=== PATIENT | female | born 1985 | race Caucasian/White ===

== ENCOUNTER 2021-07-06 17:22 | Emergency (ER) | payer OTHER ==
[~2021-07-06] VITALS: Ht 165 cm; Wt 69.0 kg
[2021-07-06 17:22] VITALS: BP 105/72
--- OUTSIDE RECORDS SUMMARY | 2021-07-06 17:28 | XMS REPORT | Clinical Summary ---
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 Active ergocalciferol Take 50,000 0 (ERGOCALCIFEROL) 50,000 Units by unit capsule mouth weekly. Active ibuprofen (ADVIL,MOTRIN) Take 800 mg 0 800 MG tablet by mouth every 6 (six) hours as needed for pain. Active metaxalone (SKELAXIN) 800 Take 800 mg 0 MG tablet by mouth 3 (three) times a day. Active norgestimate-ethinyl Take 1 tablet 0 estradiol (ORTHO-CYCLEN) by mouth 0.25-35 mg-mcg per tablet daily. Active selenium sulfide (SELSUN) Apply 0 2.5 % lotion topically 2 (two) times a week. Active meclizine (ANTIVERT) 25 Take 1 tablet 30 tablet 0 12/19/201 mg tablet (25 mg total) 7 by mouth every 6 (six) hours as needed for dizziness. Active Lidocaine (LIDODERM) 5 % Place 1 patch 30 patch 0 patch on the skin 7 daily. Remove & Discard patch within 12 hours or as directed by Active predniSONE (DELTASONE) 10 12 day taper 42 tablet 0 //201 MG tablet starting at 7 60 mg daily, decrease 10 mg every other day. Active Problems Patient Care Coordination Note Admission Note - Dr. Butler Ms. Andres Wasserman is a 31 y.o. female with PMH of asthma, anxiety and depression who presented with neck pain and dizziness after seeing a chiropractor. Patient reports a one of history of initially let sided neck and shoulder pain described as aching and tightness with migration to the middle of her neck. At that time, she had no headache (including no radiatoin of the pain to the head), no blurred vision, weakness or numbness/tingling. She was seen by a nurse practitioner with recommendation for ibuprofen and massage therapy with mild improvement of symptoms. Due to subsequent progressive worsening of the symptoms and migration of the pain to the middle/right side of the neck, the patient was seen by a chiropractor for spinal manipulation on 12/09/2016 and also on 12/11/2016. She did have mild improvement in symptoms. This morning, she awoke with severe pain and with new blurred vision, nausea and dizziness. Patient was seen at an outside hospital with concern for possible L vertebral artery dissection. No recent URI with runny nose, cough or fever, chills but did have a URI 3 weeks ago that has since resolved. No hearing loss. No trauma but she does have a history of falls in the past. Of note, she did have a cyst that was removed previously In our ER, the patient was seen by Neuro IR with no dissection and just normal variant hypoplastic vessel. Afebrile and BP stable. At this time, she has resolution of her blurred vision but still has dizziness. Patient was evaluated by neurology and after radiology workup - no definitive diagnosis was obtained. She was offered to stay for pain consultation. Her main complaint remained neck pain. On exam, she was very tender over the paravertebral musculature more concerning for soft tissue pain. She was requesting discharge after she talked with neurology. She did speak with them and was discharged. I was not updated at the time that she wished to leave but have no objections to her discharge since she was transferred here for IR and neurology recommendations. Further follow up and additional outpatient recommendations per those services. Problem Noted Date Vertigo 12/18/2016 Last Assessment & Plan: Formatting of this note might be differ ent from the original. Dizziness and neck pain: -Complicated migraine vs. BPPV vs spina l pathology (cyst?) -neurology consulted from admission Workup in progress Anxiety 12/18/2016 Last Assessment & Plan: Formatting of this note might be differ ent from the original. Continue home medications Tobacco use 12/18/2016 Last Assessment & Plan: Formatting of this note might be differ ent from the original. smoking cessation Neck pain 12/18/2016 Last Assessment & Plan: Formatting of this note might be differ ent from the original. Migraine vs. Recurrent cyst vs. Spinal process? Plan; -CT neck -pain control -Toradol Appreciate neurology input Family History Medical History Relation Name Comments Migraines Neg Hx Social History Date Tobacco Use Types Packs/Day Years Used Current Every Day Smoker Cigars Sex Assigned at Date Recorded Not on file Last Filed Vital Signs Reading Time Taken Comments Vital Sign 116/90 12/19/2016 3:43 PM [employer] Blood Pressure 77 12/19/2016 3:43 PM [employer] Pulse 37.2 C (99 F) 12/19/2016 3:43 PM [employer] Temperature 20 12/19/2016 3:43 PM [employer] Respiratory Rate 97% 12/19/2016 3:43 PM [employer] Oxygen Saturation - - Inhaled Oxygen Concentration 86.2 kg (190 lb) 12/18/2016 1:45 PM [employer] Weight - - Height - - Body Mass Index Plan of Treatment Health Maintenance Due Date Last Done Comments Td/Tdap# 1985 Tobacco Cessation 1985 Counseling # Cervical Cancer Screening 2004 via Pap Smear Influenza Vaccine (#1) 2021 Pneumococcal Vaccine: Aged Out No longer eligib le based on patient's age to Pediatrics (0 to 5 Years) complete this topic and At-Risk Patients (6 to 64 Years) Results Not on filefrom Last 3 Months Insurance Type Payer Benefit Subscriber ID Effective Phone Address Plan / Dates Group OTHER [facility] [id number] 2015-P resent [employer] Personal/F Self 1985 [address] (Home) [place] [address] Advance Directives For more information, please contact: [phone] Patient Interpreter Explanation Type Date Recorded Advance Directives and Living Will Power of Speech And Language Assistant Date Inactivated Comments Code Status Date Activated 12/19/2016 8:43 PM Full Code 12/18/2016 7:53 PM 12/18/2016 7:53 PM Full Code 12/18/2016 7:16 PM
[2021-07-06] MEDS ORDERED: RX-ACETAMINOPHEN/CODEINE TAB PPK #4 ONE (17:40)
[2021-07-06] MEDS ORDERED: RX-ACETAMINOPHEN/CODEINE TAB PPK #4 PO PRN (17:45)
[2021-07-06] MEDS ORDERED: ACET1TAB43 PO (17:47)
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
== END 2021-07-06 17:52 | disposition home or self-care (01) ==
LOC: EDUNIT# 17:22 → ER FS 17:25
DX: T22.211A Burn of second degree of right forearm, initial encounter (principal); T24.231A Burn of second degree of right lower leg, initial encounter; T23.192A Burn of first degree of multiple sites of left wrist and hand, initial encounter; X03.0XXA Exposure to flames in controlled fire, not in building or structure, initial encounter
CPT/HCPCS: 99282; A6223